=== PATIENT | male | born 1975 | race Caucasian/White ===

== ENCOUNTER 2016-08-11 09:16 | Emergency (ER) | payer MEDICAID ==
[~2016-08-11] VITALS: Ht 170.2 cm; Wt 109.5 kg
[2016-08-11 09:26] VITALS: BP 103/72
== END 2016-08-11 10:17 | disposition home or self-care (01) ==
LOC: ED 10:11
DX: S39.012A Strain of muscle, fascia and tendon of lower back, initial encounter (principal); E11.9 Type 2 diabetes mellitus without complications; J45.909 Unspecified asthma, uncomplicated; X58.XXXA Exposure to other specified factors, initial encounter; Y93.89 Activity, other specified; Y92.89 Other specified places as the place of occurrence of the external cause; Y99.8 Other external cause status
CPT/HCPCS: 99283

== ENCOUNTER 2016-08-27 21:04 | Emergency (ER) | payer MEDICAID ==
[2016-08-27] MEDS ORDERED: ASPIRIN 81 MG TABLET CHEW ONE (21:51)
[2016-08-27] MEDS ORDERED: ASPIRIN 81 MG TABLET CHEW PO ONE (22:00)
[2016-08-27 22:08] LABS: BLOOD UREA NITROGEN 17 mg/dL (7-18)
[2016-08-27 22:14] LABS: IS PT STATUS REG ER OR PRE ER? YES
[2016-08-27 23:02] VITALS: BP 119/80
== END 2016-08-27 23:04 | disposition home or self-care (01) ==
LOC: ED 22:53
DX: R07.89 Other chest pain (principal); E11.9 Type 2 diabetes mellitus without complications; J45.909 Unspecified asthma, uncomplicated; Z87.891 Personal history of nicotine dependence
CPT/HCPCS: 36415; 71010; 80048; 82040; 84484; 85025; 93005

== ENCOUNTER 2016-09-08 11:34 | Emergency (ER) | payer MEDICAID ==
[~2016-09-08] VITALS: Ht 170.2 cm; Wt 104.0 kg
[2016-09-08] MEDS ORDERED: SODIUM CHLORIDE FLUSH 10ML SYR IVF ONE (13:00)
[2016-09-08] MEDS ORDERED: SODIUM CHLORIDE 0.9% 1,000ML IVBOLUS ONE (13:00)
[2016-09-08 13:13] LABS: BLOOD UREA NITROGEN 14 mg/dL (7-18)
[2016-09-08 13:15] LABS: ASPARTATE AMINO TRANSFERASE 33 U/L (15-37)
[2016-09-08 14:29] VITALS: BP 104/68
[2016-09-08 14:44] LABS: OCCBLD OBC PASS
== END 2016-09-08 15:44 | disposition home or self-care (01) ==
LOC: ED 13:41
DX: R19.7 Diarrhea, unspecified (principal); R11.2 Nausea with vomiting, unspecified
CPT/HCPCS: 36415; 80053; 81003; 82272; 83690; 85025; 87324; 89055; 96360; 99284; J7030

== ENCOUNTER 2016-09-25 16:57 | Emergency (ER) | payer MEDICAID ==
[~2016-09-25] VITALS: Ht 170.2 cm; Wt 106.9 kg
[2016-09-25 16:58] VITALS: BP 112/73
== END 2016-09-25 18:47 | disposition home or self-care (01) ==
LOC: ED 18:41
DX: S46.812A Strain of other muscles, fascia and tendons at shoulder and upper arm level, left arm, initial encounter (principal); J45.909 Unspecified asthma, uncomplicated; E11.9 Type 2 diabetes mellitus without complications; X58.XXXA Exposure to other specified factors, initial encounter; Y93.89 Activity, other specified; Y99.8 Other external cause status; Y92.89 Other specified places as the place of occurrence of the external cause
CPT/HCPCS: 29105

== ENCOUNTER 2017-06-06 20:33 | Emergency (ER) | payer MEDICAID ==
[~2017-06-06] VITALS: Ht 170.2 cm; Wt 103.4 kg
[2017-06-06] MEDS ORDERED: SODIUM CHLORIDE 0.9% 1,000 ML IV ONE (20:45)
[2017-06-06] MEDS ORDERED: FAMOTIDINE 20 MG/2 ML IVP ONE (21:00)
[2017-06-06] MEDS ORDERED: SODIUM CHLORIDE 0.9% 1,000ML IVBOLUS ONE ×2 (21:00→21:30)
[2017-06-06] MEDS ORDERED: ONDANSETRON 2MG/ML, 2ML IVPush ONE (21:00)
[2017-06-06 21:03] LABS: BASOPHILS # (AUTO) 0.01 x10^3/uL (0-0.1); BASOPHILS % (AUTO) 0 % (0-1); EOSINOPHILS # (AUTO) 0.11 x10^3/uL (0-0.4); EOSINOPHILS % (AUTO) 1 % (1-7); LYMPHOCYTES # (AUTO) 0.61 x10^3/uL (1-3.4); LYMPHOCYTES % (AUTO) 7 % (22-44); MD NO; MEAN CORPUSCULAR HEMOGLOBIN 30.7 pg (27.5-34.5); MEAN CORPUSCULAR HGB CONC 34.2 g/dL (33.2-36.2); MEAN CORPUSCULAR VOLUME 89.8 fL (81-97); MEAN PLATELET VOLUME 10.7 fL (7.4-10.4); MONOCYTES # (AUTO) 0.44 x10^3/uL (0.2-0.8); MONOCYTES % (AUTO) 5 % (2-9); NEUTROPHILS # (AUTO) 7.16 x10^3/uL (1.8-6.8); NEUTROPHILS % (AUTO) 86 % (42-75); PLATELET COUNT 174 x10^3/uL (130-400); RED BLOOD COUNT 5.17 x10^6/uL (4.38-5.82); RED CELL DISTRIBUTION WIDTH 13.2 % (9.4-14.8)
[2017-06-06 21:14] LABS: ALANINE AMINOTRANSFERASE 20 U/L (12-78); ALBUMIN 3.8 g/dL (3.4-5.0); ANION GAP 6 mmol/L (5-15); CALCIUM 8.6 mg/dL (8.5-10.1); CHLORIDE 108 mmol/L (98-107); CREATININE 0.88 mg/dL (0.7-1.3)
[2017-06-06 21:16] LABS: ALKALINE PHOSPHATASE 55 U/L (45-117); BILIRUBIN,TOTAL 1.3 mg/dL (0.2-1.0); TOTAL PROTEIN 7.4 g/dL (6.4-8.2)
[2017-06-06] MEDS ORDERED: ONDANSETRON 2MG/ML, 2ML ONE (21:22)
[2017-06-06] MEDS ORDERED: FAMOTIDINE 20 MG/2 ML ONE (21:22)
[2017-06-06 23:30] VITALS: BP 101/64
== END 2017-06-06 23:34 | disposition home or self-care (01) ==
LOC: ED 23:28
DX: E86.0 Dehydration (principal); R19.7 Diarrhea, unspecified; E11.9 Type 2 diabetes mellitus without complications
CPT/HCPCS: 36415; 80053; 83690; 85025; 93005; 96361; 96374; 96375; 99285; J2405; J7030; S0028

== ENCOUNTER 2017-07-12 17:01 | Emergency (ER) | payer MEDICAID ==
[~2017-07-12] VITALS: Ht 170.2 cm; Wt 100.0 kg
[2017-07-12 17:05] VITALS: BP 140/92
[2017-07-12] MEDS ORDERED: ACETAMINOPHEN 325 MG TABLET PO ONE (18:00)
[2017-07-12] MEDS ORDERED: ACETAMINOPHEN 325 MG TABLET ONE (18:16)
== END 2017-07-12 18:43 | disposition home or self-care (01) ==
LOC: ED 18:25
DX: S16.1XXA Strain of muscle, fascia and tendon at neck level, initial encounter (principal); S00.03XA Contusion of scalp, initial encounter; S80.02XA Contusion of left knee, initial encounter; E11.9 Type 2 diabetes mellitus without complications; J45.909 Unspecified asthma, uncomplicated; W01.198A Fall on same level from slipping, tripping and stumbling with subsequent striking against other object, initial encounter; Y93.89 Activity, other specified; Y92.89 Other specified places as the place of occurrence of the external cause; Y99.8 Other external cause status
CPT/HCPCS: 70450; 72125; 99284

== ENCOUNTER 2018-07-04 07:23 | Emergency (ER) | payer MEDICAID ==
[~2018-07-04] VITALS: Ht 170.2 cm; Wt 98.8 kg
[2018-07-04 07:27] VITALS: BP 114/80
--- NOTE | 2018-07-04 07:46 | NUR ---
PT AWOKE THIS AM WITH L EYE SWELLING, STATES CRUSTED THIS AM. DENIES PAIN OR VISUAL DISTURBANCE. AWAITING ERP ASSESSMENT.
[2018-07-04] MEDS ORDERED: FLUORESCEIN OPHTHALMIC 1 MG STRIP EACHEYE ONE (08:00)
[2018-07-04] MEDS ORDERED: PROPARACAINE OPHTH 0.5%, 15ML EACHEYE ONE (08:00)
--- NOTE | 2018-07-04 08:00 | NUR ---
PING CHO[facility]
--- NOTE | 2018-07-04 08:25 | NUR ---
Patient/Caregiver given discharge instructions and they have confirmed that they understand the instructions. Patient ambulatory with steady gait.
== END 2018-07-04 08:27 | disposition home or self-care (01) ==
LOC: ED 08:25
DX: H10.022 Other mucopurulent conjunctivitis, left eye (principal)
CPT/HCPCS: 99283

== ENCOUNTER 2018-11-09 14:41 | Emergency (ER) | payer MEDICAID ==
--- NOTE | 2018-11-09 15:04 | NUR ---
CALLED X4 FOR TRIAGE, NO ANSWER
[2018-11-20] MEDS ORDERED: OXYC10TA6 PO (12:47)
[2018-11-20] MEDS ORDERED: PHEN-582 PO (12:47)
[2018-11-20] MEDS ORDERED: TAMS-11 PO (12:47)
[2018-11-20] MEDS ORDERED: SENN-193 PO (12:47)
== END 2018-11-09 15:08 | disposition left against medical advice (07) ==
LOC: ED 15:02
DX: R10.9 Unspecified abdominal pain (principal); Z53.21 Procedure and treatment not carried out due to patient leaving prior to being seen by health care provider

== ENCOUNTER 2018-11-16 23:16 | Emergency (ER) | payer MEDICAID ==
[~2018-11-16] VITALS: Ht 170.2 cm; Wt 89.0 kg
[2018-11-17 00:15] VITALS: BP 99/66
== END 2018-11-17 00:32 | disposition left against medical advice (07) ==
LOC: ED 23:40
DX: R10.12 Left upper quadrant pain (principal); R11.2 Nausea with vomiting, unspecified; E11.9 Type 2 diabetes mellitus without complications; J45.909 Unspecified asthma, uncomplicated
CPT/HCPCS: 36415; 80053; 83690; 85025; 96374; 99283; J2405; J7030; J1170

== ENCOUNTER 2018-11-17 10:49 | Emergency (ER) | payer MEDICAID ==
[~2018-11-17] VITALS: Ht 170.2 cm; Wt 88.9 kg
[2018-11-17 14:13] VITALS: BP 109/71
== END 2018-11-17 14:51 | disposition home or self-care (01) ==
LOC: ED 10:57
DX: N13.2 Hydronephrosis with renal and ureteral calculous obstruction (principal); J45.909 Unspecified asthma, uncomplicated; E11.9 Type 2 diabetes mellitus without complications
CPT/HCPCS: 36415; 74177; 80053; 81001; 85025; 87086; 96374; 96375; 96376; 99284; J1170; J1885; J2405; Q9967

== ENCOUNTER 2018-11-18 13:00 | Inpatient (IN) | payer MEDICAID ==
[~2018-11-18] VITALS: Ht 170.2 cm; Wt 97.1 kg
[2018-11-20 13:47] VITALS: BP 102/63
== END 2018-11-20 15:00 | disposition home or self-care (01) | DRG 661 ==
LOC: ED 14:01 → EDIP 16:06 → 3NE 16:29 → DCLOUNGE 11-20 14:52
PROVIDERS: ADMIT Family Medicine; ATTEND Family Medicine
PROC: 0TC78ZZ Extirpation of Matter from Left Ureter, Via Natural or Artificial Opening Endoscopic (ICD-10-PCS; principal; 2018-11-19)
PROC: BT1F1ZZ Fluoroscopy of Left Kidney, Ureter and Bladder using Low Osmolar Contrast (ICD-10-PCS; 2018-11-19)
PROC: 0T778DZ Dilation of Left Ureter with Intraluminal Device, Via Natural or Artificial Opening Endoscopic (ICD-10-PCS; 2018-11-19)
DX: N20.1 Calculus of ureter (principal); E11.9 Type 2 diabetes mellitus without complications; J45.909 Unspecified asthma, uncomplicated; Z79.899 Other long term (current) drug therapy; Z83.3 Family history of diabetes mellitus; Z87.442 Personal history of urinary calculi; Z87.891 Personal history of nicotine dependence; Z98.84 Bariatric surgery status; Z90.49 Acquired absence of other specified parts of digestive tract
CPT/HCPCS: 36415; 74420; 96374; 96375; 96376; 99285; J3490; 76770; 80048; 81001; 82040; 82360; 83735; 85025; 87086; 88300; C1726; G0378; J0696; J1100; J1170; J1885; J2250; J2405; J2704; J3010; J3360; Q9967; C2617; J2175; J2270; J7120

== ENCOUNTER 2018-11-25 13:17 | Emergency (ER) | payer MEDICAID ==
[~2018-11-25] VITALS: Ht 170.2 cm; Wt 92.9 kg
[2018-11-25 16:15] VITALS: BP 120/74
== END 2018-11-25 16:47 | disposition home or self-care (01) ==
LOC: ED 14:49
DX: N23 Unspecified renal colic (principal); E11.9 Type 2 diabetes mellitus without complications; J45.909 Unspecified asthma, uncomplicated; Z90.49 Acquired absence of other specified parts of digestive tract
CPT/HCPCS: 36415; 74018; 76770; 80053; 81001; 85025; 87086; 96374; 96375; 99284; J1170; J1885; J2405